=== PATIENT | female | born 1990 | race Caucasian/White ===

== ENCOUNTER 2018-11-03 21:30 | Observation (INO) | payer OTHER ==
[2018-11-03] MEDS ORDERED: SODIUM CHLORIDE 0.9% 1,000 ML IV ONE (22:38)
[2018-11-03 23:05] LABS: Basophils % (A) 0 %; Eosinophils # (A) 0.1 k/uL (0-0.7); Eosinophils % (A) 1 %; HCT 36.9 % (34.0-46.0); HGB 12.2 gm/dL (11.4-16.0); Lymphocytes # (A) 2.8 k/uL (1.0-4.8); Lymphocytes % (A) 20 %; MCH 28.7 pg (25.0-35.0); MCHC 33.1 g/dL (31.0-37.0); MCV 86.6 fL (80.0-100.0); Mean Platelet Volume 7.8; Monocytes # (A) 0.8 k/uL (0-1.0); Monocytes % (A) 6 %; Neutrophils # (A) 10.3 k/uL (1.3-7.7); Neutrophils % (A) 72 %; Platelet Count 258 k/uL (150-450); RBC 4.26 m/uL (3.80-5.40); RDW 13.9 % (11.5-15.5); WBC 14.3 k/uL (3.8-10.6)
[2018-11-03] MEDS ORDERED: diphenhydrAMINE 50 MG CAP PO PRN (23:12)
[2018-11-03] MEDS ORDERED: IBUPROFEN 600 MG TAB PO PRN (23:12)
[2018-11-03] MEDS ORDERED: diphenhydrAMINE 50 MG/ML 1 ML VIAL IVP PRN ×2 (23:12)
[2018-11-03] MEDS ORDERED: ZOLPIDEM 5 MG TAB PO PRN (23:12)
[2018-11-03] MEDS ORDERED: HYDROCORTISONE 2.5% RECTAL CREAM 30 GM TUBE RECTAL PRN (23:12)
[2018-11-03] MEDS ORDERED: WITCH HAZEL 1 EACH MED..PAD TOPICAL PRN (23:12)
[2018-11-03] MEDS ORDERED: BENZOCAINE/MENTHOL SPRAY 1 GM/SPRAY AEROSOL TOPICAL PRN (23:12)
[2018-11-03] MEDS ORDERED: diphenhydrAMINE 25 MG CAP PO PRN (23:12)
[2018-11-03] MEDS ORDERED: LANOLIN CREAM 5 GM TUBE TOPICAL PRN (23:12)
[2018-11-03] MEDS ORDERED: ACETAMINOPHEN TAB 325 MG TAB PO PRN (23:12)
[2018-11-03] MEDS ORDERED: SIMETHICONE 80 MG CHEWABLE PO PRN (23:12)
[2018-11-03 23:14] LABS: ALT 30 U/L (9-52); AST 32 U/L (14-36); Albumin 4.3 g/dL (3.5-5.0); Alkaline Phosphatase 122 U/L (38-126); Anion Gap 11 mmol/L; Blood Urea Nitrogen 6 mg/dL (7-17); Calcium 9.8 mg/dL (8.4-10.2); Carbon Dioxide 23 mmol/L (22-30); Chloride 104 mmol/L (98-107); Glucose 92 mg/dL (74-99); Potassium 4.9 mmol/L (3.5-5.1); Sodium 138 mmol/L (137-145); Total Bilirubin 0.7 mg/dL (0.2-1.3); Total Protein 7.9 g/dL (6.3-8.2)
[2018-11-03] MEDS ORDERED: OXYTOCIN 20 UNITS/1000 ML NS 1,000 ML IV SCH (23:15)
[2018-11-03 23:21] LABS: INR 0.8 (<1.2); Partial Thromboplastin Time 24.1 sec (22.0-30.0); Prothrombin Time 9.4 sec (9.0-12.0)
--- NOTE | 2018-11-03 23:23 | P.HPOB ---
History of Present Illness H&P Date: 11/03/18 Chief Complaint: labor 28 year old presents at approximately 21 weeks gestation in active labor to the ED. She has had no care up to this point because she assumed her amenorrhea was due to breast feeding her 1 year old. I was called to the ED when they noted she was . I arrived just after she delivered a stillborn. Review of Systems All systems: negative Constitutional: Reports fever, Denies chills Eyes: denies blurred vision, denies pain Ears, nose, mouth and throat: Denies headache, Denies sore throat Cardiovascular: Denies chest pain, Denies shortness of breath Respiratory: Denies cough Gastrointestinal: Denies abdominal pain, Denies diarrhea, Denies nausea, Denies vomiting Genitourinary: Denies dysuria, Denies hematuria Musculoskeletal: Denies myalgias Integumentary: Denies pruritus, Denies rash Neurological: Denies numbness, Denies weakness Psychiatric: Denies anxiety, Denies depression Endocrine: Denies fatigue, Denies weight change Past Medical History Past Medical History: No Reported History Additional Past Medical History / Comment(s): OB history: she has had 4 previous vaginal deliveries. This is her fifth . She did not know she was . History of Any Multi-Drug Resistant Organisms: None Reported Past Surgical History: No Surgical Hx Reported Additional Past Surgical History / Comment(s): BIOPSY ON THROAT, d&c, Past Psychological History: No Psychological Hx Reported, ADD/ADHD, Anxiety, Depression Smoking Status: Current every day smoker Past Alcohol Use History: None Reported Past Drug Use History: None Reported Medications and Allergies Home Medications Medication Instructions Recorded Confirmed Type Nitrofurantoin Monohyd/M-Cryst 100 mg PO Q12HR 7 Days cap 10/12/16 Rx [Macrobid] Pnv,Calcium 72/Iron/Folic Acid 1 tab PO DAILY 10/12/16 10/12/16 History [ Plus Tablet] Allergies Allergy/AdvReac Type Severity Reaction Status Date / Time No Known Allergies Allergy Verified 11/03/18 21:33 Exam Osteopathic Statement: *. No significant issues noted on an osteopathic structural exam other than those noted in the History and Physical/Consult. Vital Signs Temp Pulse Resp BP Pulse Ox 11/03/18 21:31 100 F H 93 16 119/67 100 Intake and Output 11/03/18 11/03/18 11/04/18 14:59 22:59 06:59 Other: Weight 66.224 kg HEart: RRR Lungs: CTAB Abdomen: soft, nontender Extremeties: neg mihai's cervix, 6cm dilated, placenta is still in the uterus at the level of the cervix. Results Result Diagrams: 11/03/18 21:45 11/03/18 21:45 Abnormal Lab Results - Last 24 Hours (Table) 11/03/18 11/03/18 Range/Units 21:45 21:45 WBC 14.3 H (3.8-10.6) k/uL Neutrophils # 10.3 H (1.3-7.7) k/uL BUN 6 L (7-17) mg/dL Assessment and Plan (1) demise Current Visit: Yes Status: Acute Code(s): LNT4018 - SNOMED Code(s): 657458565 Plan: 1. admit to [facility] 2. monitor for signs of infection 3. deliver placenta 4. cont pp care
--- NOTE | 2018-11-03 23:31 | ED ---
General Adult HPI - General Chief complaint: Urogenital Stated complaint: Vaginal bleeding Time Seen by Provider: 11/03/18 21:52 Source: patient, RN notes reviewed Mode of arrival: ambulatory Limitations: no limitations - History of Present Illness Initial comments: 28-year-old presents to the emergency department for a chief complaint of vaginal cramping and pressure. Patient states she thinks she is having a baby. Patient states she had a positive test a few days ago. Patient has a [id number]-vvpov-vvh daughter at home. Patient is currently breast-feeding and has not had any period since her last delivery. Patient admits to nausea and 2 episodes of vomiting while in the emergency department. Patient has no other complaints at this time including shortness of breath, chest pain, headache, or visual changes. - Related Data Home Medications Medication Instructions Recorded Confirmed Pnv,Calcium 72/Iron/Folic Acid 1 tab PO DAILY 10/12/16 11/04/18 [ Plus Tablet] Allergies Allergy/AdvReac Type Severity Reaction Status Date / Time No Known Allergies Allergy Verified 11/03/18 21:33 Review of Systems ROS Statement: Those systems with pertinent positive or pertinent negative responses have been documented in the HPI. ROS Other: All systems not noted in ROS Statement are negative. Past Medical History Past Medical History: No Reported History History of Any Multi-Drug Resistant Organisms: None Reported Past Surgical History: No Surgical Hx Reported Additional Past Surgical History / Comment(s): BIOPSY ON THROAT, d&c, Past Psychological History: No Psychological Hx Reported, ADD/ADHD, Anxiety, Depression Smoking Status: Current every day smoker Past Alcohol Use History: None Reported Past Drug Use History: None Reported - Past Family History Father History Unknown: Yes Family Medical History: No Reported History General Exam Limitations: no limitations General appearance: anxious Head exam: Present: atraumatic, normocephalic, normal inspection Eye exam: Present: normal appearance Neck exam: Present: normal inspection, full ROM GI/Abdominal exam: Present: soft, tenderness (tenderness in the lower abdomen), normal bowel sounds. Absent: distended, guarding, rebound, rigid External exam: Present: other (2 cm of amniotic sac visualized in the vaginal canal) Neurological exam: Present: alert, oriented X3, CN II-XII intact Psychiatric exam: Present: anxious Course Vital Signs 11/03/18 11/03/18 11/03/18 21:31 21:45 22:20 Temperature 100 F H Pulse Rate 93 110 H 96 Respiratory 16 20 25 H Rate Blood Pressure 119/67 148/110 148/98 O2 Sat by Pulse 100 98 100 Oximetry 11/03/18 11/03/18 11/03/18 22:25 22:29 22:32 Temperature Pulse Rate 91 114 H 99 Respiratory 18 23 20 Rate Blood Pressure 121/91 160/110 149/92 O2 Sat by Pulse 98 100 98 Oximetry Medical Decision Making - Medical Decision Making 28-year-old female presents to the emergency department for a chief complaint of vaginal cramping. Patient had a positive test at home. She has a [id number] child at home and has not had a period since that time as she is breast-feeding. I personally saw the patient immediately after being notified by Samara BRUNER that the patient was distressed at 2148. At that time patient stated she believes she is but is not at all sure how far along she is as she has not had a period since her last 19 months ago. Immediately performed visual exam of the vagina. At that time there was 2 cm amniotic sac visualized. Dr. Pugh was immediately called into the room and he immediately had Dr. Lozano paged. Dr. Gotez, detective [place] [facility] catheterization laboratory technician was also paged. Labor and delivery nurses were immediately available for assistance. Limited physical exam was performed due to the situation. Dr. Pugh and I were at bedside for the remainder of this encounter. Patient was instructed not to push until OBGYN arrived. L&D did contact Dr. Lozano a second time and she stated she was 10 minutes away. At that time Dr. Lozano told L&D nurses to deliver fetus if patient was uncomfortable as much of the amniotic sac and fetus was already delivered. There was no movement whatsoever noted. Fetus was wrapped in sterile blanket placed on warmer. Minimal bleeding noted after delivery to patient. At that time Dr. Lozano and Dr. Goetz both arrived. Patient was transferred to [facility]. - Lab Data Result diagrams: 11/03/18 21:45 11/03/18 21:45 Lab Results 11/03/18 11/03/18 11/03/18 Range/Units 21:45 21:45 21:45 WBC 14.3 H (3.8-10.6) k/uL RBC 4.26 (3.80-5.40) m/uL Hgb 12.2 (11.4-16.0) gm/dL Hct 36.9 (34.0-46.0) % MCV 86.6 (80.0-100.0) fL MCH 28.7 (25.0-35.0) pg MCHC 33.1 (31.0-37.0) g/dL RDW 13.9 (11.5-15.5) % Plt Count 258 (150-450) k/uL Neutrophils % 72 % Lymphocytes % 20 % Monocytes % 6 % Eosinophils % 1 % Basophils % 0 % Neutrophils # 10.3 H (1.3-7.7) k/uL Lymphocytes # 2.8 (1.0-4.8) k/uL Monocytes # 0.8 (0-1.0) k/uL Eosinophils # 0.1 (0-0.7) k/uL Basophils # 0.0 (0-0.2) k/uL PT 9.4 (9.0-12.0) sec INR 0.8 (<1.2) APTT 24.1 (22.0-30.0) sec Sodium 138 (137-145) mmol/L Potassium 4.9 (3.5-5.1) mmol/L Chloride 104 (98-107) mmol/L Carbon Dioxide 23 (22-30) mmol/L Anion Gap 11 mmol/L BUN 6 L (7-17) mg/dL Creatinine 0.55 (0.52-1.04) mg/dL Est GFR (CKD-EPI)AfAm >90 (>60 ml/min/1.73 sqM) Est GFR (CKD-EPI)NonAf >90 (>60 ml/min/1.73 sqM) Glucose 92 (74-99) mg/dL Plasma Lactic Acid Jesús (0.7-2.0) mmol/L Calcium 9.8 (8.4-10.2) mg/dL Total Bilirubin 0.7 (0.2-1.3) mg/dL AST 32 (14-36) U/L ALT 30 (9-52) U/L Alkaline Phosphatase 122 (38-126) U/L Total Protein 7.9 (6.3-8.2) g/dL Albumin 4.3 (3.5-5.0) g/dL Blood Type Blood Type Recheck 11/03/18 11/03/18 Range/Units 21:45 21:45 WBC (3.8-10.6) k/uL RBC (3.80-5.40) m/uL Hgb (11.4-16.0) gm/dL Hct (34.0-46.0) % MCV (80.0-100.0) fL MCH (25.0-35.0) pg MCHC (31.0-37.0) g/dL RDW (11.5-15.5) % Plt Count (150-450) k/uL Neutrophils % % Lymphocytes % % Monocytes % % Eosinophils % % Basophils % % Neutrophils # (1.3-7.7) k/uL Lymphocytes # (1.0-4.8) k/uL Monocytes # (0-1.0) k/uL Eosinophils # (0-0.7) k/uL Basophils # (0-0.2) k/uL PT (9.0-12.0) sec INR (<1.2) APTT (22.0-30.0) sec Sodium (137-145) mmol/L Potassium (3.5-5.1) mmol/L Chloride (98-107) mmol/L Carbon Dioxide (22-30) mmol/L Anion Gap mmol/L BUN (7-17) mg/dL Creatinine (0.52-1.04) mg/dL Est GFR (CKD-EPI)AfAm (>60 ml/min/1.73 sqM) Est GFR (CKD-EPI)NonAf (>60 ml/min/1.73 sqM) Glucose (74-99) mg/dL Plasma Lactic Acid Jesús 3.2 H* (0.7-2.0) mmol/L Calcium (8.4-10.2) mg/dL Total Bilirubin (0.2-1.3) mg/dL AST (14-36) U/L ALT (9-52) U/L Alkaline Phosphatase (38-126) U/L Total Protein (6.3-8.2) g/dL Albumin (3.5-5.0) g/dL Blood Type A Positive Blood Type Recheck No Disposition Clinical Impression: Miscarriage Disposition: ADMITTED IP TO THIS HOSP Condition: Good Is patient prescribed a controlled substance at d/c from ED?: No Time of Disposition: 04:24
--- NOTE | 2018-11-03 23:32 | P.PROBDLV ---
Vaginal Delivery Note - . Vaginal Delivery Note: 28 year old presented at approximately 21 weeks gestation to the ED in active labor. No heart tones were assessed. I was called to the bedside from home when she was . I was called again when I was on the way in by Sharon Amaya RN. She said she could feel the entire fetus in the vagina with the bag of water intact and there was no movement. I advised her that if the patient was terribly uncomfortable then it is ok for her to push before I arrive. I arrived just after delivery of the fetus. There was minimal bleeding from the placenta left behind so we transported her to [facility]. I had her push and she delivered the placenta in tact. No lacerations noted. Pitocin was added to the IV.
[2018-11-04 01:43] LABS: Amphetamine Screen,Urine Not Detected (NotDetected); Barbiturate Screen,Urine Not Detected (NotDetected); Benzodiazepines Screen,Urine Not Detected (NotDetected); Cocaine Screen,Urine Not Detected (NotDetected); Methadone Screen, Urine Not Detected (NotDetected); Opiate Screen,Urine Not Detected (NotDetected); Oxycodone Screen, Urine Not Detected (NotDetected); Phencyclidine Screen,Urine Not Detected (NotDetected); Tricyclic Antidepressant,Urine Not Detected (NotDetected); Urn Cannabinoid Scrn Not Detected (NotDetected)
[2018-11-04 02:00] LABS: RBC,Urine >182 /hpf (0-5)
[2018-11-04 02:01] LABS: Appearance,Urine Bloody (Clear)
[2018-11-04 02:02] LABS: Color,Urine Red; Protein,Urine Negative (Negative)
[2018-11-04 03:45] VITALS: RESP 16
[2018-11-04 04:12] VITALS: BMI 23.6
[2018-11-04] MEDS ORDERED: SENNOSIDES-DOCUSATE SODIUM 1 EACH TAB PO SCH (08:00)
[2018-11-04 08:25] VITALS: BP 112/64; PULSE 61; TEMP 97.9
--- NOTE | 2018-11-04 10:44 | P.DS ---
Providers Date of admission: 11/03/18 22:36 Expected date of discharge: 11/04/18 Attending physician: Ainsley Lozano Primary care physician: Stated None Hospital Course: Rosamaria is overall doing well. She is obviously emotionally upset at having a 21 week demise. However her vital signs are stable and she is afebrile and she is requesting discharge to home. Her lochia is reported light. On physical exam otherwise her heart is regular and lungs are clear. Abdomen is soft and nontender. Assessment day 1. Plan discharged home follow up with her own assignment manager or Dr. Lozano in 2 weeks. All other questions are answered for her at this time. Discharge instructions were thoroughly reviewed and all questions were answered for her prior to her discharge. I did offer medication for cramping to go home with and she declined. Patient Condition at Discharge: Good Plan - Discharge Summary New Discharge Prescriptions: No Action Pnv,Calcium 72/Iron/Folic Acid [ Plus Tablet] 1 tab PO DAILY Discharge Medication List Pnv,Calcium 72/Iron/Folic Acid [ Plus Tablet] 1 tab PO DAILY 10/12/16 [ History] Follow up Appointment(s)/Referral(s): None,Stated [Primary Care Provider] - 1 Week Ainsley Lozano DO [Doctor of Osteopathic Medicine] - 2 Weeks Activity/Diet/Wound Care/Special Instructions: No heavy lifting, limit stairs and driving, and pelvic rest. If any high temperatures, heavy bleeding, or severe pain call the office or report to the emergency room Discharge Disposition: HOME SELF-CARE
== END 2018-11-04 11:15 | disposition home or self-care (01) ==
LOC: EC 21:30 → 4FBP 22:36 → INTOOBSV 22:36
PROVIDERS: ADMIT Obstetrics & Gynecology; ATTEND Obstetrics & Gynecology
DX: O60.12X0 Preterm labor second trimester with preterm delivery second trimester, not applicable or unspecified (principal); O36.4XX0 Maternal care for intrauterine death, not applicable or unspecified; Z3A.21 21 weeks gestation of pregnancy; O99.332 Smoking (tobacco) complicating pregnancy, second trimester; F17.200 Nicotine dependence, unspecified, uncomplicated; Z37.1 Single stillbirth
CPT/HCPCS: 99285; 86900; 86901; 88305; 80053; 83605 ×2; 85025; 85610; 85730; 87040; 80306; G0378 ×2; J2590

== ENCOUNTER 2022-07-01 19:12 | Emergency (ER) | payer OTHER ==
[2022-07-01 19:27] VITALS: BP 140/77; PULSE 89; RESP 16; TEMP 98.3
[2022-07-01] MEDS ORDERED: IBUPROFEN 800 MG TAB PO STA (19:55)
--- NOTE | 2022-07-01 20:41 | XR ---
EXAMINATION TYPE: XR shoulder complete RT DATE OF EXAM: 07/01/2022 COMPARISON: NONE HISTORY: Shoulder pain TECHNIQUE: 3 views FINDINGS: I see no fracture nor dislocation. Joint spaces are normal. No pathologic calcification. IMPRESSION: Negative right shoulder exam.
--- NOTE | 2022-07-01 20:41 | XR ---
EXAMINATION TYPE: XR ribs RT w pa chest xray DATE OF EXAM: 07/01/2022 COMPARISON: NONE HISTORY: Rib pain TECHNIQUE: 5 views FINDINGS: Heart and mediastinum are normal. The lungs are clear of infiltrate. No pleural effusion or pneumothorax. The right ribs are intact. Right shoulder is intact. IMPRESSION: Normal chest. Normal right ribs.
--- NOTE | 2022-07-01 21:07 | ED ---
General Adult HPI - General Chief complaint: Fall Stated complaint: Fall, Chest Pain Time Seen by Provider: 07/01/22 19:40 Source: patient, RN notes reviewed, old records reviewed Mode of arrival: ambulatory Limitations: no limitations - History of Present Illness Initial comments: Patient is a 31-year-old female with no significant past medical history presents [facility] department after falling in her bathroom. She states she fell 2 days ago. Is currently having right shoulder pain, as well as right-sided rib pain. States it hurts with deep breath and over the right lateral ribs. Denies any skin changes or bruising. Denies any other injuries. Denies back pain. Denies hitting her head or lost consciousness. Is not on blood thinners. Presents for further evaluation at this time. States pain is worse with movement. - Related Data Home Medications Medication Instructions Recorded Confirmed Pnv,Calcium 72/Iron/Folic Acid 1 tab PO DAILY 10/12/16 11/04/18 [ Plus Tablet] Previous Rx's Medication Instructions Recorded methocarbamoL [Robaxin-750] 750 mg PO TID PRN 7 Days #21 tab 07/01/22 Allergies Allergy/AdvReac Type Severity Reaction Status Date / Time No Known Allergies Allergy Verified 11/03/18 21:33 Review of Systems ROS Statement: Those systems with pertinent positive or pertinent negative responses have been documented in the HPI. Review of Systems: CONST: Denies fever EYES: Denies blurry vision ENT: Denies nasal congestion C/V: Denies Chest pain RESP: Denies shortness of breath GI: Denies abdominal pain : Denies dysuria SKIN: Denies rash. MSK: Endorses right rib pain, shoulder pain. NEURO: Denies headache ROS Other: All systems not noted in ROS Statement are negative. Past Medical History Past Medical History: No Reported History Additional Past Medical History / Comment(s): OB history: she has had 4 previous vaginal deliveries. This is her fifth . She did not know she was . History of Any Multi-Drug Resistant Organisms: None Reported Past Surgical History: No Surgical Hx Reported Additional Past Surgical History / Comment(s): BIOPSY ON THROAT, d&c, Past Psychological History: No Psychological Hx Reported, ADD/ADHD, Anxiety, Depression Smoking Status: Never smoker Past Alcohol Use History: None Reported Past Drug Use History: Marijuana - Past Family History Father History Unknown: Yes Family Medical History: No Reported History General Exam - General Exam Comments Initial Comments: General: Appears in mild distress secondary to pain. HEAD: Normal with no signs of head trauma. EYES: EOMI ENT: Hearing grossly intact, normal oropharynx. RESPIRATORY: Clear breath sounds bilaterally. No wheezes, rales, or rhonchi. C/V: Regular rate and rhythm. S1 and S2 auscultated. Peripheral pulses 2+ intact throughout. ABD: Abd is soft, nontender, nondistended EXT: Normal range of motion, no obvious deformity. No midline cervical, thoracic, lumbar spine tenderness to palpation. Mild tenderness palpation over the posterior right shoulder as well as over the anterior axillary line of the right mid ribs. SKIN: No rashes or lesions observed on exposed skin. NEURO: Alert and oriented 4. No focal deficits. GCS of 15. Limitations: no limitations Course Vital Signs 07/01/22 19:23 Temperature 98.3 F Pulse Rate 89 Respiratory 16 Rate Blood Pressure 140/77 O2 Sat by Pulse 100 Oximetry Medical Decision Making - Medical Decision Making We will obtain chest x-ray, right shoulder x-ray. Patient will be given ibuprofen for pain control. Patient was in agreement this plan. X-rays are negative for acute traumatic process. I explained the results of the patient. She may have a rib contusion. We'll provide her with muscle relaxers as well as a work note. She was in agreement this plan. Will follow-up with her PCP. Vital signs remained within normal limits. I will provide the patient with a prescription for Robaxin. I instructed the patient to follow up with their PCP in the next 1-3 days. I explained that the patient should return to the emergency department if they experience any worsening symptoms. Strict return precautions were discussed with the patient. The patient expressed understanding of these instructions. I answered all questions that the patient had. The patient was discharged home in good condition with their prescriptions and follow up information. Disposition Clinical Impression: Rib pain on right side Disposition: HOME SELF-CARE Condition: Good Instructions (If sedation given, give patient instructions): Fall Prevention (ED), Rib Contusion (ED) Prescriptions: methocarbamoL [Robaxin-750] 750 mg PO TID PRN 7 Days #21 tab PRN Reason: Pain Is patient prescribed a controlled substance at d/c from ED?: No Referrals: None,Stated [Primary Care Provider] - 1-2 days Time of Disposition: 20:50
== END 2022-07-01 21:21 | disposition home or self-care (01) ==
LOC: EC 19:12
DX: R07.81 Pleurodynia (principal); M25.511 Pain in right shoulder; W19.XXXA Unspecified fall, initial encounter; Y92.002 Bathroom of unspecified non-institutional (private) residence as the place of occurrence of the external cause
CPT/HCPCS: 99283

== ENCOUNTER 2024-10-28 17:31 | Emergency (ER) | payer OTHER ==
[2024-10-28 18:15] VITALS: RESP 16
--- NOTE | 2024-10-28 18:23 | ED ---
Recheck HPI - General Chief Complaint: Recheck/Abnormal Lab/Rx Stated Complaint: SDI testing Time Seen by Provider: 10/28/24 17:48 Source: patient, RN notes reviewed Mode of arrival: ambulatory Limitations: no limitations - History of Present Illness Initial Comments: This is a 34-year-old female no significant medical history presented to emergency department for encounter for STD check. States that her partner she has been sexually active with his recently tested positive for chlamydia. Dysuria, hematuria, increased urinary frequency or urgency. Patient states that she would like to be prophylactically treated for STDs. - Related Data Home Medications Medication Instructions Recorded Confirmed Pnv,Calcium 72/Iron/Folic Acid 1 tab PO DAILY 10/12/16 11/04/18 [ Plus Tablet] Previous Rx's Medication Instructions Recorded methocarbamoL [Robaxin-750] 750 mg PO TID PRN 7 Days #21 tab 07/01/22 Doxycycline [Vibramycin] 100 mg PO BID #13 capsule 10/28/24 Allergies Allergy/AdvReac Type Severity Reaction Status Date / Time No Known Allergies Allergy Verified 10/28/24 18:15 Review of Systems ROS Statement: Those systems with pertinent positive or pertinent negative responses have been documented in the HPI. ROS Other: All systems not noted in ROS Statement are negative. Past Medical History Past Medical History: No Reported History Additional Past Medical History / Comment(s): OB history: she has had 4 previous vaginal deliveries. This is her fifth . She did not know she was . History of Any Multi-Drug Resistant Organisms: None Reported Past Surgical History: No Surgical Hx Reported Additional Past Surgical History / Comment(s): BIOPSY ON THROAT, d&c, Past Psychological History: No Psychological Hx Reported, ADD/ADHD, Anxiety, Depression Smoking Status: Never smoker Past Alcohol Use History: None Reported Past Drug Use History: Marijuana - Past Family History Father History Unknown: Yes Family Medical History: No Reported History General Exam Limitations: no limitations General appearance: alert, in no apparent distress Eye exam: Present: normal appearance, PERRL, EOMI. Absent: scleral icterus, conjunctival injection, periorbital swelling ENT exam: Present: normal exam, mucous membranes moist Neck exam: Present: normal inspection. Absent: tenderness, meningismus, lymphadenopathy Respiratory exam: Present: normal lung sounds bilaterally. Absent: respiratory distress, wheezes, rales, rhonchi, stridor Cardiovascular Exam: Present: regular rate, normal rhythm, normal heart sounds. Absent: systolic murmur, diastolic murmur, rubs, gallop, clicks GI/Abdominal exam: Present: soft, normal bowel sounds. Absent: distended, tenderness, guarding, rebound, rigid Extremities exam: Present: normal inspection, full ROM, normal capillary refill. Absent: tenderness, pedal edema, joint swelling, calf tenderness Back exam: Present: normal inspection Course Vital Signs 10/28/24 10/28/24 18:14 19:42 Temperature 98.3 F 98 F Pulse Rate 74 66 Respiratory 16 16 Rate Blood Pressure 122/84 140/91 O2 Sat by Pulse 99 96 Oximetry Medical Decision Making - Medical Decision Making Was pt. sent in by a medical professional or institution ([facility] Palomares, [employer], urgent care, hospital, or longterm...) When possible be specific @ -No Did you speak to anyone other than the patient for history (EMS, parent, family, police, friend...)? What history was obtained from this source @ -No Did you review nursing and triage notes (agree or disagree)? Why? @ -I reviewed and agree with nursing and triage notes Were old charts reviewed (outside hosp., previous admission, EMS record, old EKG, old radiological studies, urgent care reports/EKG's, longterm records)? Report findings @ -No old charts were reviewed Differential Diagnosis (chest pain, altered mental status, abdominal pain women, abdominal pain men, vaginal bleeding, weakness, fever, dyspnea, syncope, headache, dizziness, GI bleed, back pain, seizure, CVA, palpatations, mental health, musculoskeletal)? @ -Urinary tract infection, chlamydia, gonorrhea, this list is not all inclusive EKG interpreted by me (3pts min.). @ -none X-rays interpreted by me (1pt min.). @ -None done CT interpreted by me (1pt min.). @ -None done U/S interpreted by me (1pt. min.). @ -None done What testing was considered but not performed or refused? (CT, X-rays, U/S, labs)? Why? @ -None What meds were considered but not given or refused? Why? @ -None Did you discuss the management of the patient with other professionals (professionals i.e. Dr., PA, [employer], lab, RT, psych nurse, community mental health social worker, body mechanic apprentice, teacher, evp and chief operating officer, director case management)? Give summary @ -No Was smoking cessation discussed for >3mins.? @ -No Was critical care preformed (if so, how long)? @ -No Were there social determinants of health that impacted care today? How? (Homelessness, low income, unemployed, alcoholism, drug addiction, transportation, low edu. Level, literacy, decrease access to med. care, intermediate, rehab)? @ -No Was there de-escalation of care discussed even if they declined (Discuss DNR or withdrawal of care, Hospice)? DNR status @ -No What co-morbidities impacted this encounter? (DM, HTN, Smoking, COPD, CAD, Cancer, CVA, ARF, Chemo, Hep., AIDS, mental health diagnosis, sleep apnea, morbid obesity)? @ -None Was patient admitted / discharged? Hospital course, mention meds given and route, prescriptions, significant lab abnormalities, going to OR and other pertinent info. @ -Discharge. 34-year-old female presenting for STD evaluation. Patient is provided with Rocephin and doxycycline to cover for chlamydia and gonorrhea. Prescription sent to pharmacy. Discussed with Dr. Pugh Undiagnosed new problem with uncertain prognosis? @ -No Drug Therapy requiring intensive monitoring for toxicity (Heparin, Nitro, Insulin, Cardizem)? @ -No Were any procedures done? @ -No Diagnosis/symptom? @ -encounter for STD screening, prophylaxis treatment for STD Acute, or Chronic, or Acute on Chronic? @ -acute Uncomplicated (without systemic symptoms) or Complicated (systemic symptoms)? @ -uncomplicated Side effects of treatment? @ -No Exacerbation, Progression, or Severe Exacerbation? @ -No Poses a threat to life or bodily function? How? (Chest pain, [place], CA, pneumonia, PE, COPD, DKA, ARF, appy, cholecystitis, CVA, Diverticulitis, Homicidal, Suicidal, threat to staff... and all critical care pts) @ -No Disposition Clinical Impression: Screening for STD (sexually transmitted disease) Disposition: HOME SELF-CARE Condition: Good Instructions (If sedation given, give patient instructions): Safe Sex Practices (ED) Additional Instructions: Please return to the Emergency Department if symptoms worsen or any other concerns. Prescriptions: Doxycycline [Vibramycin] 100 mg PO BID #13 capsule Is patient prescribed a controlled substance at d/c from ED?: No Referrals: None,Stated [Primary Care Provider] - 1-2 days Time of Disposition: 18:50
[2024-10-28] MEDS: DOXYCYCLINE 100 MG CAP PO STA (19:33)
[2024-10-28] MEDS: cefTRIAXone 250 MG VIAL IM STA (19:33)
[2024-10-28 19:43] VITALS: BP 140/91; PULSE 66; TEMP 98
[2024-10-29 14:25] LABS: C. trachomatis,PCR Negative (Negative); N. gonorrhoeae,PCR Negative (Negative)
== END 2024-10-28 19:43 | disposition home or self-care (01) ==
LOC: EC 17:31
DX: Z11.3 Encounter for screening for infections with a predominantly sexual mode of transmission (principal)
CPT/HCPCS: 87491; 87591; 99282; 96372; J0696